=== PATIENT | male | born 1955 | race African-American/Black ===

== ENCOUNTER 2021-02-14 01:19 | Inpatient (IN) | payer MEDICARE, MEDICAID ==
[~2021-02-14] VITALS: Ht 167.6 cm; Wt 78.9 kg
[2021-02-14] MEDS ORDERED: LORAZEPAM 1MG TABLET PO ONE (02:00)
[2021-02-14] MEDS ORDERED: NITROGLYCERIN 0.4MG TABLET SL SL ONE (02:00)
[2021-02-14 02:09] LABS: BASOPHILS % 1.3 % (0.0-2.0); EOSINOPHILS % 0.7 % (0.0-5.0); HEMATOCRIT. 36.1 % (42.0-52.0); HEMOGLOBIN. 12.2 g/dL (14.0-18.0); LYMPHOCYTES % 30.4 % (20.0-50.0); MEAN CORPUSCULAR HEMOGLOBIN 32.5 pg (28.0-32.0); MEAN CORPUSCULAR VOLUME 96.6 fL (80.0-94.0); MONOCYTES % 10.5 % (2.0-8.0); NEUTROPHILS % 57.1 % (40.0-76.0); PLATELET 262 x1000/uL (130-400); RED BLOOD CELL COUNT 3.74 mill/uL (4.7-6.1)
[2021-02-14 02:16] LABS: CHLORIDE 113 mEq/L (98-107)
[2021-02-14 02:27] LABS: ETHANOL BLOOD 269 mg/dL
[2021-02-14 03:18] LABS: CLARITY URINE CLEAR (CLEAR); COLOR URINE YELLOW (YELLOW); KETONES URINE NEGATIVE (NEGATIVE); LEUKOCYTE ESTERASE URINE NEGATIVE (NEGATIVE); NITRITE URINE NEGATIVE (NEGATIVE); OCCULT BLOOD URINE NEGATIVE (NEGATIVE); PH URINE 5.5 (4.5-8.0); PROTEIN URINE TRACE (NEGATIVE); SPECIFIC GRAVITY URINE 1.026 (1.005-1.030); UROBILINOGEN URINE 0.2 E.U./dL (0.2-1.0)
[2021-02-14 03:28] LABS: *AMPHETAMINES SCREEN URINE NEGATIVE (NEGATIVE); *BARBITURATES SCREEN URINE NEGATIVE (NEGATIVE); *BENZODIAZEPINES SCREEN URINE NEGATIVE (NEGATIVE); *COCAINE SCREEN URINE NEGATIVE (NEGATIVE)
[2021-02-14 03:29] LABS: CANNABINOID URINE SCREEN NEGATIVE (NEGATIVE); METHADONE URINE SCREEN NEGATIVE (NEGATIVE); OPIATES URINE SCREEN NEGATIVE (NEGATIVE); PHENCYCLIDINE URINE SCREEN NEGATIVE (NEGATIVE)
[2021-02-14 09:00] VITALS: BP_SYST 123; BP_SYST 169; BP_DIAS 70; BP_DIAS 90
[2021-02-14 10:00] VITALS: BP 160/114
[2021-02-14] MEDS ORDERED: ACETAMINOPHEN 325MG TABLET PO PRN (10:15)
[2021-02-14] MEDS ORDERED: ONDANSETRON HCL 4MG/2ML INJ IV PRN (10:15)
[2021-02-14] MEDS ORDERED: LORAZEPAM 2MG/ML CPJ IV PRN (10:15)
[2021-02-14] MEDS: ASPIRIN 81MG TABLET PO SCH (10:31)
[2021-02-14] MEDS: THIAMINE HCL 100MG TABLET PO SCH (10:31)
[2021-02-14] MEDS: AMLODIPINE 10MG TABLET PO SCH (10:32)
[2021-02-14] MEDS ORDERED: INFLUENZA VACCINE 05/PF 0.5 ML SYRINGE IM ONE (11:45)
[2021-02-14] MEDS ORDERED: PNEUMOCOCCAL 23-VAL P-SAC VAC 0.5 ML IM ONE (11:45)
[2021-02-14] MEDS ORDERED: HYDRALAZINE HCL 100MG TABLET PO SCH (12:00)
[2021-02-14 12:01] VITALS: BP 172/105
[2021-02-14 12:31] VITALS: BP 172/95
[2021-02-14 15:41] VITALS: BP 158/99
[2021-02-14] MEDS: LOSARTAN POTASSIUM 100 MG TABLET PO SCH (16:07)
[2021-02-14 20:00] VITALS: BP 158/94
[2021-02-14] MEDS: HYDRALAZINE HCL 100MG TABLET PO SCH (21:28)
[2021-02-15] VITALS: BP 117/69
[2021-02-15 03:36] VITALS: BP 129/75
[2021-02-15] MEDS: HYDRALAZINE HCL 100MG TABLET PO SCH ×2 (05:42→14:56)
[2021-02-15 08:04] VITALS: BP 149/90
[2021-02-15] MEDS: THIAMINE HCL 100MG TABLET PO SCH (09:29)
[2021-02-15] MEDS: AMLODIPINE 10MG TABLET PO SCH (09:29)
[2021-02-15] MEDS: ASPIRIN 81MG TABLET PO SCH (09:29)
[2021-02-15] MEDS: LOSARTAN POTASSIUM 100 MG TABLET PO SCH (09:29)
[2021-02-15] MEDS ORDERED: AMLO10TA80 PO (11:42)
[2021-02-15] MEDS ORDERED: THIA100T72 PO (11:42)
[2021-02-15] MEDS ORDERED: LOSA100T3 PO (11:42)
[2021-02-15] MEDS ORDERED: HYDR100T26 PO (11:42)
[2021-02-15 12:01] VITALS: BP 157/106
[2021-02-15 13:48] VITALS: BP 139/79
== END 2021-02-15 16:30 | disposition home or self-care (01) | DRG 199 ==
LOC: ER 01:19 → 5EST 04:41 → EDBEDREQTM 04:55 → EDBEDREQ 04:55 → ENRESERV 07:41 → 5EST 09:18
PROVIDERS: ADMIT Internal Medicine; ATTEND Internal Medicine
DX: I16.0 Hypertensive urgency (principal); E44.1 Mild protein-calorie malnutrition; E87.8 Other disorders of electrolyte and fluid balance, not elsewhere classified; R07.89 Other chest pain; D64.9 Anemia, unspecified; D72.819 Decreased white blood cell count, unspecified; F10.129 Alcohol abuse with intoxication, unspecified; I10 Essential (primary) hypertension; Y90.8 Blood alcohol level of 240 mg/100 ml or more; E66.9 Obesity, unspecified; J44.9 Chronic obstructive pulmonary disease, unspecified; F17.210 Nicotine dependence, cigarettes, uncomplicated; Z91.19 Patient's noncompliance with other medical treatment and regimen; Z23 Encounter for immunization; Z68.28 Body mass index [BMI] 28.0-28.9, adult
CPT/HCPCS: 36415; 71045; 80053; 80305; 80320; 81003; 83880; 84443; 84484; 85025; 90686; 90732; 93005; 93306; 99285; J2060; G0480

== ENCOUNTER 2021-03-16 13:59 | Emergency (ER) | payer MEDICARE, MEDICAID ==
[~2021-03-16] VITALS: Ht 177.8 cm; Wt 82.0 kg
[~2021-03-16 13:59] MED LIST: AMLO10TA80 PO; HYDR100T26 PO; LOSA100T3 PO; THIA100T72 PO
[2021-03-16 14:13] VITALS: BP 147/92
[2021-03-16] MEDS ORDERED: SODIUM CHLORIDE 0.9% 1,000 ML IV ONE (15:15)
[2021-03-16 16:54] LABS: BASOPHILS % 0.9 % (0.0-2.0); EOSINOPHILS % 0.7 % (0.0-5.0); HEMATOCRIT. 35.3 % (42.0-52.0); HEMOGLOBIN. 11.9 g/dL (14.0-18.0); LYMPHOCYTES % 42.5 % (20.0-50.0); MEAN CORPUSCULAR HEMOGLOBIN 32.3 pg (28.0-32.0); MEAN CORPUSCULAR VOLUME 95.6 fL (80.0-94.0); MEAN PLATELET VOLUME 8.5 fl (7.4-10.4); MONOCYTES % 13.6 % (2.0-8.0); NEUTROPHILS % 42.3 % (40.0-76.0); PLATELET 128 x1000/uL (130-400); RED BLOOD CELL COUNT 3.69 mill/uL (4.7-6.1); RED CELL DISTRIBUTION WIDTH 15.4 % (11.6-14.6)
[2021-03-16 16:58] LABS: CHLORIDE 110 mEq/L (98-107)
[2021-03-16 17:15] LABS: ETHANOL BLOOD 349 mg/dL
== END 2021-03-16 19:13 | disposition left against medical advice (07) ==
LOC: ER 14:27
DX: F10.129 Alcohol abuse with intoxication, unspecified (principal); Y90.9 Presence of alcohol in blood, level not specified
CPT/HCPCS: 36415; 80053; 80320; 83690; 83880; 84484; 85025; 99283; J7030; G0480